=== PATIENT | male | born 2000 | race African-American/Black ===

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

== ENCOUNTER 2025-04-16 08:37 | Emergency (ER) | payer SELFPAY ==
[~2025-04-16] VITALS: Ht 185.4 cm; Wt 220.7 kg
[2025-04-16 11:54] LABS: BASO # 0.1 10^3/uL (0.0-0.2); BASO % 0.4 % (0.0-1.0); EOS # 0.3 10^3/uL (0.0-0.5); EOS % 2.3 % (0.0-3.0); LYMPH # 3.2 10^3/uL (1.5-5.0); LYMPH % 22.5 % (24.0-44.0); MONO # 0.8 10^3/uL (0.0-0.8); MONO % 5.4 % (2.0-8.0); NEUTROPHILS # 9.7 10^3/uL (1.5-8.5); NEUTROPHILS % 68.8 % (36.0-66.0); PLATELET COUNT, AUTOMATED 486 10^3/uL (150-450)
[2025-04-16 12:23] LABS: C REACTIVE PROTEIN QUANTITATIV 1.01 MG/DL (<1.0); CALCIUM LEVEL 9.5 MG/DL (8.5-10.1); CARBON DIOXIDE LEVEL 29 MMOL/L (20-31); CHLORIDE LEVEL 100 MMOL/L (98-107); CREATININE FOR GFR 0.88 MG/DL (0.70-1.30); GLOMERULAR FILTRATION RATE > 90.0 (>60); POTASSIUM SERUM 4.8 MMOL/L (3.5-5.1); SODIUM LEVEL 138 MMOL/L (136-145)
[2025-04-16] MEDS: cefTRIAXone SOD 1 GM in DEXTROSE 5% (D5W) ADV/MINI-BAG 50 ML IV ONE (12:35)
[2025-04-16] MEDS ORDERED: CEFD300CAP PO (12:56)
[2025-04-16 13:08] VITALS: BP 160/89; TEMP 97.2; O2SAT 100
== END 2025-04-16 13:36 | disposition home or self-care (01) ==
LOC: M ED 08:37
DX: L03.031 Cellulitis of right toe (principal); Z88.0 Allergy status to penicillin; Z79.2 Long term (current) use of antibiotics
CPT/HCPCS: 73660; 80048; 85025; 85652; 86140; 87070; 87077; 87186; 96365; 99284; J0696